=== PATIENT | female | born 1960 | race Caucasian/White ===

== ENCOUNTER → 2018-04-20 | Outpatient (CLI) | payer BC ==
[~2018-04-20] MED LIST: ASPIRIN 81M81 MG/TA2 PO; DOXYCYCLINE 10100 MG PO; FINACEA15% TP; MAXITROL OPHTH3.5 GM OP; PERCOCET 325 MG1 TA2 PO; RESTASIS0.05% OU; UNABLE; ZOCOR 40MG40 MG PO; ZOLOFT 100MG100 MG PO
== END ==
LOC: MC.RAD 11:07
DX: Z12.31 Encounter for screening mammogram for malignant neoplasm of breast (principal)

== ENCOUNTER → 2018-10-12 | Outpatient (CLI) | payer BC ==
--- NOTE | 2018-10-11 08:14 | NUR ---
lmom as to time adn date. asked for med list and for her to call back
[~2018-10-12] VITALS: Ht 160 cm; Wt 133.5 kg
[~2018-10-12] MED LIST changes: +RESTASIS MULTI5.5 ML OP; +ULTRAM 50MG TAB50 MG PO
[2018-10-12 07:47] VITALS: BP 144/93; PULSE 97
[2018-10-12 08:40] VITALS: BP 153/99; PULSE 93
== END ==
LOC: COL.RAD 07:27
DX: E04.1 Nontoxic single thyroid nodule (principal)

== ENCOUNTER 2018-11-08 12:32 | Outpatient (RCR) | payer BC ==
[2018-12-07] MEDS ORDERED: CALCIUM 600-D 61 TAB PO (08:25)
[2018-12-07] MEDS ORDERED: OMEGA-31 SGL PO (08:43)
[2018-12-07] MEDS ORDERED: VITAMINC1000TA PO (08:44)
[2018-12-07] MEDS ORDERED: MULTI VITAMINS1 TAB PO (08:45)
[2018-12-07] MEDS ORDERED: GLUCOPHAGE500 MG/TAB PO ×2 (08:46→08:47)
[2018-12-07] MEDS ORDERED: VICTOZA6 MG/ML SQ (08:48)
[2018-12-07] MEDS ORDERED: ELIQUIS 5MG PO (08:49)
[2018-12-07] MEDS ORDERED: TOPROL XL 25MG25 MG PO (08:49)
[2018-12-07] MEDS ORDERED: ASPIRIN E.C. 8181 MG PO (08:50)
[2018-12-07] MEDS ORDERED: BLACK COHOSH40 MG PO (08:51)
[2018-12-07] MEDS ORDERED: MUCINEX D1 TER PO (08:52)
[2018-12-07] MEDS ORDERED: ALLEGRA 180MG180 MG PO (08:52)
[2018-12-07] MEDS ORDERED: NASONEX SPRAY17 GM NS (08:53)
[2018-12-07] MEDS ORDERED: MULTAQ400 MG PO (09:41)
[2019-01-12] MEDS ORDERED: BETAPACE 80MG80 MG PO (10:00)
== END 2019-02-06 | disposition home or self-care (01) ==
LOC: WSST
DX: F01.50 Vascular dementia, unspecified severity, without behavioral disturbance, psychotic disturbance, mood disturbance, and anxiety (principal)

== ENCOUNTER 2018-12-07 07:36 | Day surgery (SDC) | payer BC ==
[~2018-12-07] VITALS: Ht 160.1 cm; Wt 133.0 kg
[2018-12-07 08:25] VITALS: BP 126/78; PULSE 74; TEMP 98.2
[2018-12-07] MEDS ORDERED: CALCIUM 600-D 61 TAB PO (08:25)
[2018-12-07 08:30] LABS: HEMATOCRIT 45.4 % (37.0-47.0); HEMOGLOBIN 14.7 g/dl (12.5-16.0); MEAN CELL VOLUME 91 fl (80.0-100.0); MEAN CORPUSCULAR HEMOGLOBIN 29 pg (27.0-31.0); MEAN CORPUSCULAR HGB CONC 32 g/dl (33.0-37.0); MEAN PLATELET VOLUME 10.3 fl (7.4-10.4); PLATELET COUNT 228 K/mm3 (130-400)
[2018-12-07 08:36] LABS: PROTHROMBIN TIME 11.7 SECONDS (9.7-12.8)
[2018-12-07 08:39] LABS: PARTIAL THROMBOPLASTIN TIME 33.8 SECONDS (26.0-37.0)
[2018-12-07] MEDS ORDERED: OMEGA-31 SGL PO (08:43)
[2018-12-07] MEDS ORDERED: VITAMINC1000TA PO (08:44)
[2018-12-07] MEDS ORDERED: MULTI VITAMINS1 TAB PO (08:45)
[2018-12-07 08:46] LABS: CALCIUM 9.4 mg/dL (8.4-10.2); CREATININE, serum 0.77 (0.52-1.25); POTASSIUM 4.5 mmol/L (3.4-5.0)
[2018-12-07] MEDS ORDERED: GLUCOPHAGE500 MG/TAB PO ×2 (08:46→08:47)
[2018-12-07] MEDS ORDERED: VICTOZA6 MG/ML SQ (08:48)
[2018-12-07] MEDS ORDERED: TOPROL XL 25MG25 MG PO (08:49)
[2018-12-07] MEDS ORDERED: ELIQUIS 5MG PO (08:49)
[2018-12-07] MEDS ORDERED: ASPIRIN E.C. 8181 MG PO (08:50)
[2018-12-07] MEDS ORDERED: BLACK COHOSH40 MG PO (08:51)
[2018-12-07] MEDS ORDERED: MUCINEX D1 TER PO (08:52)
[2018-12-07] MEDS ORDERED: ALLEGRA 180MG180 MG PO (08:52)
[2018-12-07] MEDS ORDERED: NASONEX SPRAY17 GM NS (08:53)
[2018-12-07 09:16] LABS: THYROID STIMULATING HORMONE 2.64 uIU/mL (0.465-4.680)
[2018-12-07] MEDS ORDERED: MULTAQ400 MG PO (09:41)
[2018-12-07 10:05] VITALS: BP 121/85; PULSE 72
[2018-12-07 10:20] VITALS: BP 124/88; PULSE 71
[2018-12-07 10:35] VITALS: BP 121/77; PULSE 77
== END 2018-12-07 11:23 | disposition home or self-care (01) ==
LOC: COL.CAR 07:36
PROVIDERS: Internal Medicine Cardiovascular Disease
DX: I48.91 Unspecified atrial fibrillation (principal); E78.2 Mixed hyperlipidemia; I10 Essential (primary) hypertension; E11.9 Type 2 diabetes mellitus without complications; G47.33 Obstructive sleep apnea (adult) (pediatric); J30.89 Other allergic rhinitis; F32.9 Major depressive disorder, single episode, unspecified; N80.9 Endometriosis, unspecified; E66.9 Obesity, unspecified; K21.9 Gastro-esophageal reflux disease without esophagitis; G89.29 Other chronic pain; F41.9 Anxiety disorder, unspecified; Z79.01 Long term (current) use of anticoagulants; Z90.710 Acquired absence of both cervix and uterus; Z88.5 Allergy status to narcotic agent; Z88.6 Allergy status to analgesic agent; Z88.2 Allergy status to sulfonamides; Z88.1 Allergy status to other antibiotic agents; Z79.82 Long term (current) use of aspirin; Z79.84 Long term (current) use of oral hypoglycemic drugs; Z79.51 Long term (current) use of inhaled steroids; Z80.0 Family history of malignant neoplasm of digestive organs; Z83.3 Family history of diabetes mellitus; Z68.43 Body mass index [BMI] 50.0-59.9, adult; Z86.73 Personal history of transient ischemic attack (TIA), and cerebral infarction without residual deficits
CPT/HCPCS: J2704

== ENCOUNTER 2019-01-10 08:02 | Inpatient (IN) | payer BC ==
[~2019-01-10] VITALS: Ht 160 cm; Wt 96.0 kg
[~2019-01-10 08:02] MED LIST changes: +ALLEGRA 180MG180 MG PO; +ASPIRIN E.C. 8181 MG PO; +BLACK COHOSH40 MG PO; +CALCIUM 600-D 61 TAB PO; +ELIQUIS 5MG PO; +GLUCOPHAGE500 MG/TAB PO; +MUCINEX D1 TER PO; +MULTAQ400 MG PO; +MULTI VITAMINS1 TAB PO; +NASONEX SPRAY17 GM NS; +OMEGA-31 SGL PO; +TOPROL XL 25MG25 MG PO; +VICTOZA6 MG/ML SQ; +VITAMINC1000TA PO
[2019-01-10 08:28] VITALS: BP 125/80; PULSE 80; TEMP 98.3
[2019-01-10 08:42] LABS: BASO # 0.1 (0.0-0.2); BASO % 0.6 % (0.0-2.0); EOS # 0.2 (0.0-0.7); EOS % 2.7 % (0-4.0); GRAN # 5.8 (1.4-6.5); GRAN % 67.6 % (42.2-75.2); HEMATOCRIT 44.2 % (37.0-47.0); HEMOGLOBIN 14.5 g/dl (12.5-16.0); LYMPH # 1.8 (1.2-3.4); LYMPH % 20.6 % (20.0-51.0); MEAN CELL VOLUME 89 fl (80.0-100.0); MEAN CORPUSCULAR HEMOGLOBIN 29 pg (27.0-31.0); MEAN CORPUSCULAR HGB CONC 33 g/dl (33.0-37.0); MEAN PLATELET VOLUME 10.1 fl (7.4-10.4); MONO # 0.7 (0.1-0.6); MONO % 7.6 % (1.7-9.3); PLATELET COUNT 204 K/mm3 (130-400); RED BLOOD COUNT 4.99 M/mm3 (4.10-5.30); REDCELL DISTRIBUTION WIDTH-CV 12.3 % (11.5-14.5)
[2019-01-10 08:44] LABS: INR 1.1 (0.8-3.0); PROTHROMBIN TIME 13.4 SECONDS (9.7-12.8)
[2019-01-10 08:50] LABS: ALBUMIN 4.8 gm/dL (3.5-5.0); BILIRUBIN,TOTAL 0.3 mg/dL (0.0-1.0); CALCIUM 9.5 mg/dL (8.4-10.2); CREATININE, serum 0.88 (0.52-1.25); POTASSIUM 4.2 mmol/L (3.4-5.0); TOTAL PROTEIN 8.7 gm/dL (6.4-8.2)
[2019-01-10 12:12] VITALS: BP 114/62; PULSE 78; TEMP 98.2
[2019-01-10 16:04] VITALS: BP 119/56; PULSE 66; TEMP 98.3
--- NOTE | 2019-01-10 17:11 | NUR ---
[employer]id[employer] met with patient to discuss discharge planning. Patient outside of [facility] with her [facility] (ph#[phone]). Patient sees Dr. Patsy Grace for primary care and obtains medications from [facility]. Patient uses a CPAP at home. Patient states her , [facility] is [facility] and copies are at home in the safe deposit box. Patient plans to return home upon discharge.
--- NOTE | 2019-01-10 19:11 | NUR ---
Patient is up in room, administered medication, states she has her usual slight pain to her low back. Call light and personal items are within reach.
[2019-01-10 19:14] VITALS: BP 130/76; PULSE 71; TEMP 98.9
--- NOTE | 2019-01-10 19:45 | NUR ---
Shift assessment complete. Patient ambulating in room. Denies pain. IV in left wrist flushed with NS, blood return noted. Denies further needs at this time. Will continue to monitor.
[2019-01-11 03:55] VITALS: BP 119/66; PULSE 67; TEMP 97.7
--- NOTE | 2019-01-11 06:09 | NUR ---
Patient in bed, awake. Denies pain. States she would like to shower later. Denies further needs at this time. Will continue to monitor.
[2019-01-11 07:21] LABS: HEMATOCRIT 42.7 % (37.0-47.0); HEMOGLOBIN 13.9 g/dl (12.5-16.0); MEAN CELL VOLUME 90 fl (80.0-100.0); MEAN CORPUSCULAR HEMOGLOBIN 29 pg (27.0-31.0); MEAN CORPUSCULAR HGB CONC 33 g/dl (33.0-37.0); MEAN PLATELET VOLUME 10.6 fl (7.4-10.4); PLATELET COUNT 196 K/mm3 (130-400); RED BLOOD COUNT 4.77 M/mm3 (4.10-5.30); REDCELL DISTRIBUTION WIDTH-CV 12.3 % (11.5-14.5)
[2019-01-11 07:28] LABS: INR 1.2 (0.8-3.0); PROTHROMBIN TIME 14.3 SECONDS (9.7-12.8)
[2019-01-11 07:32] LABS: CALCIUM 9.3 mg/dL (8.4-10.2); CREATININE, serum 0.77 (0.52-1.25); MAGNESIUM 2.1 mg/dL (1.6-2.3); POTASSIUM 4.1 mmol/L (3.4-5.0)
[2019-01-11 09:00] VITALS: BP 140/49; PULSE 71; TEMP 97.9
--- NOTE | 2019-01-11 09:00 | NUR ---
Patient is awake and alert in room. Needs verbalized. Call light and personal items are within reach.
--- NOTE | 2019-01-11 09:32 | NUR ---
Initial visit; Patient thanked [employer] for looking in on her and offering God's blessings.
[2019-01-11 09:53] LABS: BAND 4 % (0-10); EOSINOPHIL 5 % (0-4); LYMPHOCYTE 28 % (20.0-51.0); NEUTROPHILS 54 % (42.0-75.2); PLATELET ESTIMATE NORMAL (NORMAL)
[2019-01-11 12:30] VITALS: BP 119/59; PULSE 77; TEMP 98.5
[2019-01-11 17:51] VITALS: BP 125/78; PULSE 64; TEMP 98.2
[2019-01-11 20:04] VITALS: BP 126/72; PULSE 66; TEMP 98.4
--- NOTE | 2019-01-11 20:08 | NUR ---
Patient is sitting up in room using computer. Report given to Ernestine. Has no needs. Call light and personal items are within reach.
--- NOTE | 2019-01-11 20:30 | NUR ---
Initial shift assessment done- denies chest pain, denies SOB, denies any palpitations- on Tele- SR, states will go home tomorrow, no requests, Up on own- steady of feet
[2019-01-11 23:27] VITALS: BP 109/46; PULSE 66; TEMP 98.8
[2019-01-12 03:50] VITALS: BP 97/31; PULSE 62; TEMP 98.4
--- NOTE | 2019-01-12 06:33 | NUR ---
Quiet night- no requests- going home today
[2019-01-12 07:08] VITALS: BP 106/55; PULSE 63; TEMP 97.8
[2019-01-12 07:35] LABS: HEMATOCRIT 41.6 % (37.0-47.0); HEMOGLOBIN 13.6 g/dl (12.5-16.0); MEAN CELL VOLUME 90 fl (80.0-100.0); MEAN CORPUSCULAR HEMOGLOBIN 30 pg (27.0-31.0); MEAN CORPUSCULAR HGB CONC 33 g/dl (33.0-37.0); MEAN PLATELET VOLUME 11.1 fl (7.4-10.4); PLATELET COUNT 200 K/mm3 (130-400); RED BLOOD COUNT 4.61 M/mm3 (4.10-5.30); REDCELL DISTRIBUTION WIDTH-CV 12.4 % (11.5-14.5)
[2019-01-12 07:36] LABS: INR 1.2 (0.8-3.0); PROTHROMBIN TIME 13.5 SECONDS (9.7-12.8)
[2019-01-12 07:42] LABS: CALCIUM 9.3 mg/dL (8.4-10.2); CREATININE, serum 0.78 (0.52-1.25); MAGNESIUM 2.2 mg/dL (1.6-2.3); POTASSIUM 4.1 mmol/L (3.4-5.0)
--- NOTE | 2019-01-12 08:06 | NUR ---
Pt is awake and A/Ox4, ambulating around hallways and room. Denies pain. States she "feels good." Saline lock to left hand is free of complications. Pt remains in NSR per tele. Pt excited about potential discharge later today. Denies any needs.
[2019-01-12 08:44] LABS: BAND 6 % (0-10); EOSINOPHIL 1 % (0-4); NEUTROPHILS 55 % (42.0-75.2); PLATELET ESTIMATE NORMAL (NORMAL)
[2019-01-12 08:45] LABS: LYMPHOCYTE 31 % (20.0-51.0)
[2019-01-12] MEDS ORDERED: BETAPACE 80MG80 MG PO (10:00)
--- NOTE | 2019-01-12 11:33 | NUR ---
Pt was discharged home from hospital. All discharge instructions and paperwork was reviewed with pt who expressed understanding and had no questions. Saline lock removed, catheter tip intact. New prescription sent to pharm. Pt own med returned to pt. Pt was escorted out of facility by staff.
== END 2019-01-12 11:34 | disposition home or self-care (01) | DRG 310 ==
LOC: MEDICAL 08:02
PROVIDERS: ADMIT Internal Medicine Cardiovascular Disease
DX: I48.0 Paroxysmal atrial fibrillation (principal); I10 Essential (primary) hypertension; E78.5 Hyperlipidemia, unspecified; I05.9 Rheumatic mitral valve disease, unspecified

== ENCOUNTER → 2019-01-30 | Outpatient (CLI) | payer BC ==
[~2019-01-30] MED LIST changes: +BETAPACE 80MG80 MG PO
== END ==
LOC: COL.CARD 09:39
DX: R41.3 Other amnesia (principal)

== ENCOUNTER → 2019-05-03 | Outpatient (CLI) | payer BC ==
[~2019-05-03] MED LIST changes: +ALLEGRA-D 24HR1 T24 PO; +CALCIUM 600MG+D1 TAB PO; +CALCIUM CITRAT200 M2 PO; +DAILY MULTIPLE1 T19 PO; +FISH OIL 500 M1 EAC1 PO; +MAGNESIUM PO; +MERIBIN5 MG PO; +MUCINEX1200 MG PO; +NASACORT OTC NS; +PROBIOTIC ACID1 EAC3 PO; +TIKOSYN0.5 MG PO; +TOPROL XL 50MG50 MG PO; +TYLENOL 8 HR PO; +[UNRECOGNIZED DRUG - OTHER] PO
== END ==
LOC: MC.RAD 04-24 10:30
DX: Z12.31 Encounter for screening mammogram for malignant neoplasm of breast (principal)

== ENCOUNTER 2020-07-03 09:38 | Emergency (ER) | payer BC ==
[~2020-07-03] VITALS: Ht 160 cm; Wt 127.3 kg
[2020-07-03 09:50] VITALS: TEMP 98.2
[2020-07-03 10:16] LABS: BASO % 0.5 % (0.0-2.0); EOS # 0.1 (0.0-0.7); EOS % 2.4 % (0-4.0); GRAN # 3.6 (1.4-6.5); GRAN % 60.4 % (42.2-75.2); HEMATOCRIT 41.7 % (37.0-47.0); HEMOGLOBIN 13.6 g/dl (12.5-16.0); LYMPH # 1.7 (1.2-3.4); LYMPH % 27.8 % (20.0-51.0); MEAN CELL VOLUME 88 fl (80.0-100.0); MEAN CORPUSCULAR HEMOGLOBIN 29 pg (27.0-31.0); MEAN CORPUSCULAR HGB CONC 33 g/dl (33.0-37.0); MEAN PLATELET VOLUME 9.4 fl (7.4-10.4); MONO # 0.5 (0.1-0.6); MONO % 8.6 % (1.7-9.3); PLATELET COUNT 192 K/mm3 (130-400); RED BLOOD COUNT 4.73 M/mm3 (4.10-5.30); REDCELL DISTRIBUTION WIDTH-CV 12.5 % (11.5-14.5)
[2020-07-03 10:26] LABS: ALBUMIN 4.6 gm/dL (3.5-5.0); BILIRUBIN,TOTAL 0.2 mg/dL (0.0-1.0); CALCIUM 9.4 mg/dL (8.4-10.2); CREATININE, serum 0.74 (0.52-1.25); POTASSIUM 4.3 mmol/L (3.4-5.0)
[2020-07-03 11:05] LABS: COLLECTION METHOD CATHETER
[2020-07-03 11:16] LABS: PH 5 (5-8); SQUAMOUS EPITHELIAL 0-2 /hpf; URINE APPEARANCE Clear; URINE BACTERIA Rare /hpf; URINE BILIRUBIN Negative (NEGATIVE); URINE BLOOD Negative (NEGATIVE); URINE COLOR Yellow; URINE GLUCOSE Negative (NEGATIVE); URINE KETONE Negative (NEGATIVE); URINE LEUKOCYTE ESTERASE Negative (NEGATIVE); URINE NITRATE Negative (NEGATIVE); URINE PROTEIN(semi-quant) Negative (NEGATIVE); URINE RBC 0-2 /hpf; URINE UROBILINOGEN Negative (NEGATIVE)
[2020-07-03] MEDS ORDERED: PEPCID 20MG TAB20 MG PO (11:55)
[2020-07-03 12:04] VITALS: BP 127/78; PULSE 74
== END 2020-07-03 12:07 | disposition home or self-care (01) ==
LOC: COL.ER 09:38
PROVIDERS: Emergency Medicine
DX: R10.9 Unspecified abdominal pain (principal); I48.91 Unspecified atrial fibrillation; I10 Essential (primary) hypertension; E78.5 Hyperlipidemia, unspecified; Z86.73 Personal history of transient ischemic attack (TIA), and cerebral infarction without residual deficits; Z88.0 Allergy status to penicillin; Z88.2 Allergy status to sulfonamides
CPT/HCPCS: Q9967